=== PATIENT | male | born 1965 | race African-American/Black ===

== ENCOUNTER 2019-03-03 15:24 | Emergency (ER) | payer MEDICAID ==
[~2019-03-03] VITALS: Ht 162.6 cm; Wt 90.0 kg
[2019-03-03] MEDS ORDERED: KETOROLAC 30 MG/1 ML ONE (15:35)
--- NOTE | 2019-03-03 15:53 | NUR ---
RIGHT FLANK PAIN FOR 2 DAYS AND BECAME WORSE THIS MORNING. MEDICATED FOR PAIN PER ORDERS AND LYING FLAT IN A POSITION OF COMFORT
[2019-03-03] MEDS ORDERED: KETOROLAC 30 MG/1 ML IM ONE (16:00)
[2019-03-03 16:01] LABS: BASOPHILS # (AUTO) 0.05 x10^3/uL (0-0.1); BASOPHILS % (AUTO) 1 % (0-1); EOSINOPHILS # (AUTO) 0.03 x10^3/uL (0-0.4); EOSINOPHILS % (AUTO) 0 % (1-7); LYMPHOCYTES # (AUTO) 1.21 x10^3/uL (1-3.4); LYMPHOCYTES % (AUTO) 12 % (22-44); MD NO; MEAN CORPUSCULAR HEMOGLOBIN 28.2 pg (27.5-34.5); MEAN CORPUSCULAR HGB CONC 32.3 g/dL (33.2-36.2); MEAN CORPUSCULAR VOLUME 87.3 fL (81-97); MEAN PLATELET VOLUME 7.9 fL (7.4-10.4); MONOCYTES # (AUTO) 0.98 x10^3/uL (0.2-0.8); MONOCYTES % (AUTO) 10 % (2-9); NEUTROPHILS # (AUTO) 8.05 x10^3/uL (1.8-6.8); NEUTROPHILS % (AUTO) 78 % (42-75); PLATELET COUNT 225 x10^3/uL (130-400); RED BLOOD COUNT 4.95 x10^6/uL (4.38-5.82); RED CELL DISTRIBUTION WIDTH 16.1 % (9.4-14.8)
[2019-03-03 16:11] LABS: ALBUMIN 3.3 g/dL (3.4-5.0); ANION GAP 9 mmol/L (5-15); CHLORIDE 104 mmol/L (98-107)
[2019-03-03 16:14] LABS: CREATININE 0.76 mg/dL (0.7-1.3)
--- NOTE | 2019-03-03 16:29 | NUR ---
Antwan RN: CT pending, pt states pain improving & able to move about more freely with less pain. Attempting to give urine sample.
[2019-03-03 16:30] VITALS: BP 114/62
--- NOTE | 2019-03-03 16:54 | NUR ---
ON RETURN FROM CT, PT SITTING UP ON EDGE OF [facility] IN ATTEMPT TO GIVE URINE SAMPLE
--- NOTE | 2019-03-03 17:06 | NUR ---
PT STATES THAT HIS PAIN HAS GONE FROM A 20/10 TO 10/10. URINE SAMPLE OBTAINED AND SENT
[2019-03-03 17:21] LABS: MICROSCOPIC NOT IND
[2019-03-03 17:29] LABS: CULTURE INDICATED? NO
== END 2019-03-03 17:59 | disposition home or self-care (01) ==
LOC: ED 17:26
DX: S39.012A Strain of muscle, fascia and tendon of lower back, initial encounter (principal); R10.31 Right lower quadrant pain; R10.11 Right upper quadrant pain; N20.0 Calculus of kidney; E11.9 Type 2 diabetes mellitus without complications; F17.200 Nicotine dependence, unspecified, uncomplicated; X58.XXXA Exposure to other specified factors, initial encounter; Y93.89 Activity, other specified; Y92.89 Other specified places as the place of occurrence of the external cause; Y99.8 Other external cause status
CPT/HCPCS: 36415; 74176; 80048; 81003; 82040; 85025; 93005; 96372; 99284; J1885

== ENCOUNTER 2020-04-06 19:21 | Emergency (ER) | payer MEDICAID ==
[~2020-04-06] VITALS: Ht 162.6 cm; Wt 86.4 kg
[2020-04-06] MEDS ORDERED: ATOR-2 PO (19:48)
[2020-04-06] MEDS ORDERED: LISI5TAB7 PO (19:48)
[2020-04-06] MEDS ORDERED: PIRO20CA2 PO (19:48)
[2020-04-06] MEDS ORDERED: PANT40TA5 PO (19:48)
[2020-04-06] MEDS ORDERED: TAMS-11 PO (19:48)
[2020-04-06] MEDS ORDERED: METF500T17 PO (19:48)
[2020-04-06] MEDS ORDERED: GABA600T7 PO (19:48)
[2020-04-06] MEDS ORDERED: KETOROLAC 30 MG/1 ML ONE (20:02)
[2020-04-06] MEDS ORDERED: DIAZEPAM 5 MG TABLET ONE (20:02)
--- NOTE | 2020-04-06 20:32 | NUR ---
PT TO ED WITH C/O RIGHT SIDED SHOULDER PAIN WITH RADICULOPATHY TO RIGHT HAND. DENIES STRENUOUS ACTIVITY OR INJURY. DENIES CHEST PAIN, SHORTNESS OF BREATH OR TROUBLE BREATHING. FAST NEGATIVE.
[2020-04-06] MEDS ORDERED: KETOROLAC 30 MG/1 ML IM ONE (21:00)
[2020-04-06] MEDS ORDERED: DIAZEPAM 5 MG TABLET PO ONE (21:00)
--- NOTE | 2020-04-06 22:01 | NUR ---
MRI FORMED COMPLETED AND FAXED.
[2020-04-06] MEDS ORDERED: HYDROmorphone 1 MG/ML, 1ML INJ ONE (22:32)
--- NOTE | 2020-04-06 22:46 | NUR ---
PT TO MRI
[2020-04-06] MEDS ORDERED: HYDROmorphone 1 MG/ML, 1ML INJ IM ONE (23:00)
[2020-04-06] MEDS ORDERED: GADOTERATE 10 MMOL/20 ML SYR ONE (23:09)
[2020-04-07 00:37] VITALS: BP 150/99
[2020-04-07] MEDS ORDERED: HYDROmorphone 1 MG/ML, 1ML INJ IV ONE ×2 (01:00)
== END 2020-04-07 01:08 | disposition home or self-care (01) ==
LOC: ED 21:56
DX: M48.03 Spinal stenosis, cervicothoracic region (principal); M47.812 Spondylosis without myelopathy or radiculopathy, cervical region; R53.1 Weakness; R51 Headache; I49.3 Ventricular premature depolarization; R94.31 Abnormal electrocardiogram [ECG] [EKG]; I10 Essential (primary) hypertension; E11.9 Type 2 diabetes mellitus without complications; F17.210 Nicotine dependence, cigarettes, uncomplicated
CPT/HCPCS: 72156; 93005; 96372; 96374; 96376; 99285; A9575; J1170; J1885